=== PATIENT | female | born 1955 | race Caucasian/White ===

== ENCOUNTER 2019-12-09 20:15 | Inpatient (IN) | payer OTHER ==
[2019-12-09 21:16] LABS: Actual Bicarbonate (HCO3a) 50.9 mEq/L (22-28); Analyzer IN Cardio ER; Base Excess (BEa) 19.2 mEq/L (-2.0 to +3.0); Calcium, Ionized 1.18 mmol/L (1.12-1.30); Carboxyhemoglobin (COHb) 0.1 gm% (0.0-3.0); Hemoglobin (Hb) 11.9 g/dL (12.0-16.0); O2 Tension (PaO2) 81.4 mmHg (> 80.0); Potassium - ABG Lab 4.33 mmol/L (3.70-5.30); pH, Arterial 7.28 (7.35-7.45)
[2019-12-09 21:47] LABS: CO2 Tension 112.1 mmHg (35.0-45.0)
[2019-12-09 21:48] LABS: ALV-art Gradient -21.885 (0-20); Puncture Site LBA
[2019-12-09 22:26] LABS: Actual Bicarbonate (HCO3a) 46.6 mEq/L (22-28); Analyzer IN Cardio ER; Base Excess (BEa) 17.1 mEq/L (-2.0 to +3.0); Calcium, Ionized 1.17 mmol/L (1.12-1.30); Carboxyhemoglobin (COHb) 0.2 gm% (0.0-3.0); Hemoglobin (Hb) 12.1 g/dL (12.0-16.0); O2 Tension (PaO2) 67.5 mmHg (> 80.0); Potassium - ABG Lab 4.33 mmol/L (3.70-5.30); pH, Arterial 7.35 (7.35-7.45)
[2019-12-09] MEDS ORDERED: Ipratropium Bromide 2.5 ml Neb NEB PRN (22:26)
[2019-12-09] MEDS ORDERED: Bacteriostatic Water 30 ML VIAL FS PRN (22:33)
--- NOTE | 2019-12-09 22:36 | PDOC.EVN ---
Event Note - Event Note Event Note: [id number] HP
[2019-12-10] MEDS: cefTRIAXone\\ROCEPHIN 1 GM in Sodium Chloride 0.9% 100 ML IVPB SCH ×2 (00:43→22:47)
[2019-12-10] MEDS: methylPREDNISolone Sod Succ 40 MG VIAL IVP SCH ×5 (00:44→22:48)
[2019-12-10 01:10] VITALS: BMI 30.9
[2019-12-10 01:43] LABS: Puncture Site R BRACHIAL]
--- NOTE | 2019-12-10 02:49 | HP ---
CHIEF COMPLAINT: Altered mental status. HISTORY OF PRESENT ILLNESS: Ms. Witt is a 64-year-old female with past medical history of COPD, presents to [facility] for altered mental status. The patient was somnolent and was given Narcan and placed on BiPAP. The patient arrived to the emergency room. The patient was not on BiPAP or CPAP. The patient was awake, alert, oriented x1. ABGs showed acute on chronic respiratory acidosis. The patient was placed back on BiPAP. Repeat ABGs showed a pH of 7.28, PaCO2 of 112, PaO2 of 81. The patient is becoming more awake and alert and able to answer simple questions. The patient is being admitted to the [facility] for further management. PAST MEDICAL HISTORY: COPD. PAST SURGICAL HISTORY: 1. Hysterectomy. 2. Tonsillectomy. 3. Cataract surgery. PAST PSYCHIATRIC HISTORY: Depression. SOCIAL HISTORY: Denies alcohol drinking, former smoker. FAMILY HISTORY: Reviewed and noncontributory. ALLERGIES: NO KNOWN ALLERGIES. HOME MEDICATIONS: Please see home medication reconciliation form for updated medications. REVIEW OF SYSTEMS: The patient is somnolent. History is unreliable, but review of 14 systems negative except what is mentioned in history of present illness. PHYSICAL EXAMINATION: GENERAL: The patient is awake, lethargic. VITAL SIGNS: Blood pressure is 172/85, pulse is 110, respiratory rate is 20, temperature 98.6, pulse oximetry is 98% on 2 L/minute nasal cannula. HEAD AND NECK: Normocephalic. NECK: Supple. CHEST: Decreased air entry bilaterally. HEART: S1, S2. Regular, tachycardic. ABDOMEN: Obese, soft. Bowel sounds present. NEUROLOGIC: Awake, alert, and oriented x1. PSYCHIATRIC: Unable to assess. EXTREMITIES: No clubbing, no cyanosis. LABORATORY DATA: ABGs; pH is 7.28, PaCO2 of 112, PO2 of 81. BNP is less than 10. Troponin less than 0.01. ASSESSMENT AND PLAN: 1. Acute on chronic hypercapnic respiratory failure. 2. Chronic obstructive pulmonary disease with exacerbation. 3. Obesity. 4. Acute encephalopathy, metabolic. PLAN: 1. Admit to [facility]. 2. Continue with BiPAP. 3. Monitor patient's respiratory and neurological/mental status. 4. Bronchodilators scheduled as needed. 5. IV steroids. 6. Consult Pulmonary for evaluation and further recommendations. 7. Reconcile home medications. 8. DVT prophylaxis as appropriate. 9. Expected length of stay, 2 midnights or more. Job ID: [id number]
--- NOTE | 2019-12-10 11:31 | PDOC.HOSPP ---
- Subjective Encounter Date: 12/10/19 Encounter Time: 11:26 Subjective: Ms. Witt was seen today in follow-up of COPD exacerbation. She says she is having some difficulty breathing. She appears a bit dyspneic as well. - Objective Vital Signs & Weight: Vital Signs (12 hours) Temp Pulse Resp Pulse Ox 12/10/19 11:22 115 H 21 H 95 12/10/19 07:39 97.4 F L 100 12/10/19 07:26 95 12/10/19 07:25 99 24 H 100 12/10/19 05:11 100 12/10/19 04:00 97.0 F L 12/10/19 01:38 110 H 98 12/10/19 01:36 112 H 23 H 99 12/09/19 23:56 97.4 F L Weight Weight 164 lb Most Recent Monitor Data Heart Rate from ECG 97 NIBP 124/73 NIBP BP-Mean 90 Respiration from ECG 24 SpO2 100 I&O: 12/09/19 12/10/19 12/11/19 06:59 06:59 06:59 Intake Total 340 Output Total 380 600 Balance -40 -600 Hospitalist ROS - Medication Medications: Active Medications Generic Name Dose Route Start Last Admin Trade Name Freq PRN Reason Stop Dose Admin Albuterol/Ipratropium 3 ml 12/10/19 15:00 12/10/19 11:22 Duoneb NEB 3 ml [id number] DARVIN Administration Ceftriaxone Sodium 1 gm/ 100 mls @ 200 mls/hr 12/09/19 22:30 12/10/19 00:43 Sodium Chloride IVPB 100 mls Q24HR DARVIN Administration Methylprednisolone Sodium Succinate 40 mg 12/09/19 23:59 12/10/19 05:57 Solu-Medrol IVP 40 mg Q6HR DARVIN Administration - Exam Heart: RRR, no murmur, no gallops, no rubs, normal peripheral pulses Respiratory: CTAB (with decreased air movement), no ronchi Gastrointestinal: soft, non-tender, non-distended, normal bowel sounds, no palpable masses, no hepatomegaly Extremities: no cyanosis, no clubbing, no edema Hosp A/P (1) Acute on chronic respiratory failure with hypoxemia Code(s): J96.21 - ACUTE AND CHRONIC RESPIRATORY FAILURE WITH HYPOXIA Status: Acute (2) COPD exacerbation Code(s): J44.1 - CHRONIC OBSTRUCTIVE PULMONARY DISEASE W (ACUTE) EXACERBATION Status: Acute - Plan * Acute on chronic respiratory failure- continue the current management * Continue Steroids, IV antibiotics, Duonebs, and and supplemental oxygen * Echo is pending
--- NOTE | 2019-12-10 12:21 | CON ---
DATE OF CONSULTATION: HISTORY OF PRESENT ILLNESS: This is a 64-year-old female from [place], pack-a-day smoker, quit smoking six years ago. She has known history of COPD. Yesterday, she got worse with confusion and mental status change. She was placed on a BiPAP and transferred to the hospital over here. She had marked respiratory acidosis. She says on a most day, she is quite functional. She is able to walk maybe 50 feet without getting markedly short of breath. PAST MEDICAL HISTORY: Depression and COPD. PAST SURGICAL HISTORY: Previous surgeries; hysterectomy, tonsillectomy, and cataracts. SOCIAL HISTORY: No substance abuse. No alcohol. Former smoker. HOME MEDICATIONS: Includes: 1. Zoloft 50. 2. Nebulizer four times a day, low-flow O2. ALLERGIES: NONE. REVIEW OF SYSTEMS: Ten-point negative. PHYSICAL EXAMINATION: GENERAL: She is still encephalopathic. VITAL SIGNS: Temperature 97, blood pressure 124/70, respiratory rate 18. CHEST: Decreased breath sounds with minimal wheezing. CARDIAC: Normal S1 and S2. No gallops. ABDOMEN: No masses. LABORATORY DATA: White count 9,000, H and H are unremarkable, and platelet count is normal. A pO2 is 67, pCO2 is 86, and pH is 7.35. Lytes are normal. Bicarb is 39. Chest x-ray shows otherwise bronchitis, marked respiratory acidosis, depression, and obesity. I have added DuoNeb. Added PT. Continue steroids. Echo is being ordered. Consultation note, 70 minutes, 50% direct patient care. Job ID: [id number]
[2019-12-10] MEDS: Mometasone/Formoterol 120 PUFF INHALER INH SCH (19:07)
[2019-12-10] MEDS ORDERED: Acetaminophen 325 MG TAB PO PRN (22:02)
[2019-12-10] MEDS ORDERED: Acetaminophen 650 MG Suppository PR PRN (22:02)
[2019-12-11] MEDS: methylPREDNISolone Sod Succ 40 MG VIAL IVP SCH ×2 (06:11→10:53)
[2019-12-11] MEDS: Mometasone/Formoterol 120 PUFF INHALER INH SCH ×2 (07:10→17:34)
[2019-12-11] MEDS: Docusate 100 MG CAP PO SCH (08:47)
[2019-12-11 08:49] LABS: #Lymphocytes 1.2 thou/uL (1.20-3.40); #Monocytes 0.4 thou/uL (0.11-0.59); #Neutrophils 12.3 thou/uL (1.40-6.50); %Basophils 0.1 % (0.0-1.0); %Eosinophils 0.3 % (0.0-10.0); %Lymphocytes 8.3 % (21.0-51.0); %Monocytes 2.7 % (0.0-10.0); %Neutrophils 88.7 % (42.0-75.0); Hemoglobin 12.5 g/dL (12.0-16.0); Mean Corpuscular Hemoglobin 29.5 pg (27.0-31.0); Mean Corpuscular Volume 95.1 fL (78.0-98.0); Mean Platelet Volume 8.3 fL (7.4-10.4); Platelet Count 300 thou/uL (130-400); RBC Distribution Width 11.8 % (11.5-14.5); Red Blood Cell (RBC) Count 4.23 mill/uL (4.20-5.40); White Blood Cell (WBC) Count 13.9 thou/uL (4.8-10.8)
[2019-12-11 08:52] LABS: BUN (Urea Nitrogen) 19 mg/dL (9.8-20.1); Calc. Creatinine Clearance 96 mL/min (70-130); Calcium 10.2 mg/dL (7.8-10.44); Estimated GFR-MDRD 83; Glucose 130 mg/dL (80-115)
[2019-12-11 09:01] LABS: Anion Gap 17 mmol/L (10-20); Carbon Dioxide 34 mmol/L (23-31); Chloride 94 mmol/L (98-107); Sodium 141 mmol/L (136-145)
[2019-12-11] MEDS ORDERED: Simethicone Chewable 80 MG TAB PO PRN (09:46)
--- NOTE | 2019-12-11 09:53 | PDOC.HOSPP ---
- Subjective Encounter Date: 12/11/19 Encounter Time: 09:51 Subjective: Ms. Witt was seen today in follow-up of respiratory failure due to COPD. She does not have any new complaints. She has been noted to have decreased oxygen requirements. - Objective Vital Signs & Weight: Vital Signs (12 hours) Temp Pulse Resp Pulse Ox 12/11/19 07:19 96.8 F L 12/11/19 07:11 100 12/11/19 07:08 94 18 98 12/11/19 03:36 97.2 F L 12/11/19 03:01 98 12/11/19 02:56 98 26 H 98 12/10/19 23:43 98.6 F Weight Weight 164 lb Most Recent Monitor Data Heart Rate from ECG 86 NIBP 129/67 NIBP BP-Mean 87 Respiration from ECG 22 SpO2 99 I&O: 12/10/19 12/11/19 12/12/19 06:59 06:59 06:59 Intake Total 340 750 Output Total 380 1400 Balance -40 -650 Result Diagrams: 12/11/19 08:11 12/11/19 08:11 Hospitalist ROS - Medication Medications: Active Medications Generic Name Dose Route Start Last Admin Trade Name Freq PRN Reason Stop Dose Admin Acetaminophen 650 mg 12/10/19 22:02 12/10/19 22:48 Tylenol PO 650 mg Q4H PRN Administration Fever > 101 Albuterol/Ipratropium 3 ml 12/10/19 15:00 12/11/19 07:08 Duoneb NEB 3 ml [id number] DARVIN Administration Docusate Sodium 100 mg 12/11/19 09:00 12/11/19 08:47 Colace PO 100 mg DAILY DARVIN Administration Ceftriaxone Sodium 1 gm/ 100 mls @ 200 mls/hr 12/09/19 22:30 12/10/19 22:47 Sodium Chloride IVPB 100 mls Q24HR DARVIN Administration Methylprednisolone Sodium Succinate 40 mg 12/09/19 23:59 12/11/19 06:11 Solu-Medrol IVP 40 mg Q6HR DARVIN Administration Mometasone Furoate/Formoterol Fumar 2 puff 12/10/19 18:30 12/11/19 07:10 Dulera 200 Mcg/5 Mcg Inhaler INH 2 puff BID-RT DARVIN Administration Sertraline HCl 50 mg 12/11/19 09:00 12/11/19 08:47 Zoloft PO 50 mg DAILY DARVIN Administration - Exam Eye: PERRL Heart: RRR, no murmur, no gallops, no rubs, normal peripheral pulses Respiratory: CTAB (+ improved air movement), no wheezes, no rales, no ronchi Gastrointestinal: soft, non-tender, non-distended, normal bowel sounds, no palpable masses, no hepatomegaly Extremities: no cyanosis, no clubbing, no edema Hosp A/P (1) Acute on chronic respiratory failure with hypoxemia Code(s): J96.21 - ACUTE AND CHRONIC RESPIRATORY FAILURE WITH HYPOXIA Status: Acute (2) COPD exacerbation Code(s): J44.1 - CHRONIC OBSTRUCTIVE PULMONARY DISEASE W (ACUTE) EXACERBATION Status: Acute - Plan * Acute on chronic respiratory failure-slowly improving * Continue Duonebs, Steroids, and antibiotics * Echo results noted * She is stable to move out of the [facility] if ok by [facility]
[2019-12-11] MEDS ORDERED: Doxycycline 100 MG CAP PO SCH (11:45)
--- NOTE | 2019-12-11 12:28 | PRG ---
DATE OF SERVICE: 12/11/2019 SUBJECTIVE: This morning, she is better. Echo done was normal. She is less short of breath, less cough. OBJECTIVE: VITAL SIGNS: Saturations are 97% on room air, blood pressure 157/101, respiratory rate 28, and temperature 99.6. CHEST: Decreased breath sounds. No wheezing. CARDIAC: Normal S1 and S2. No gallops. ABDOMEN: No masses. LABORATORY DATA: Lytes are normal. White count . ASSESSMENT: Chronic obstructive pulmonary disease exacerbation and bronchitis. PLAN: De-escalate medication. She needs pulmonary function tests prior to discharge baseline. She can probably be transferred out of the MICU. Job ID: [id number]
[2019-12-11] MEDS: Doxycycline 100 MG CAP PO SCH (20:31)
[2019-12-11] MEDS ORDERED: ALPRAZolam 0.5 MG TAB PO SCH (22:15)
[2019-12-11 23:06] LABS: Lactic Acid 1.5 mmol/L (0.5-2.2)
[2019-12-11 23:10] LABS: BUN (Urea Nitrogen) 21 mg/dL (9.8-20.1); Calc. Creatinine Clearance 91 mL/min (70-130); Calcium 10.2 mg/dL (7.8-10.44); Estimated GFR-MDRD 78; Glucose 86 mg/dL (80-115); Magnesium 2.3 mg/dL (1.6-2.6)
[2019-12-11 23:20] LABS: Anion Gap 16 mmol/L (10-20); Carbon Dioxide 38 mmol/L (23-31); Chloride 94 mmol/L (98-107); Potassium 4.8 mmol/L (3.5-5.1); Sodium 143 mmol/L (136-145)
[2019-12-12] MEDS: Mometasone/Formoterol 120 PUFF INHALER INH SCH ×2 (08:31→17:23)
[2019-12-12] MEDS: predniSONE 20 MG TAB PO SCH (08:40)
[2019-12-12] MEDS: Docusate 100 MG CAP PO SCH (08:41)
[2019-12-12] MEDS: Doxycycline 100 MG CAP PO SCH ×2 (08:41→21:22)
--- NOTE | 2019-12-12 09:03 | PRG ---
DATE OF SERVICE: 12/12/2019 SUBJECTIVE: This morning, she is awake, alert, responsive, says she is less short of breath, has less cough. I switched her to some oral medication. She is clearly very anxious and depressed. She has a negative affect. PHYSICAL EXAMINATION: VITAL SIGNS: Temperature 96, pulse 88, 2 L, blood pressure 123/71. CHEST: Decreased breath sounds. No wheezing. CARDIAC: Normal S1, S2. No gallops. ABDOMEN: No masses. LABORATORY DATA: Labs unremarkable. ASSESSMENT: Chronic obstructive pulmonary disease, respiratory failure, depression. PLAN: 1. Increase the Zoloft to 75. 2. Needs to be transferred out of the MICU. 3. Otherwise, continue PT supportive care. Job ID: [id number]
--- NOTE | 2019-12-12 11:28 | PDOC.HOSPP ---
- Subjective Encounter Date: 12/12/19 Encounter Time: 11:24 Subjective: Ms Witt was seen today in follow-up of COPD exacerbation . She says she is breathing better. She is less short of breath. - Objective Vital Signs & Weight: Vital Signs (12 hours) Temp Pulse Resp BP Pulse Ox 12/12/19 11:17 96.8 F L 12/12/19 10:57 98 18 99 12/12/19 08:31 88 20 100 12/12/19 07:59 98 12/12/19 07:13 96.4 F L 12/12/19 07:00 100 12/12/19 05:00 143/78 H 12/12/19 04:00 97.4 F L 12/12/19 03:00 110/64 12/12/19 02:00 118/74 12/12/19 01:00 136/64 12/12/19 00:11 118/66 12/11/19 23:38 97.3 F L Weight Weight 164 lb Most Recent Monitor Data Heart Rate from ECG 99 NIBP 114/57 NIBP BP-Mean 76 Respiration from ECG 21 SpO2 99 I&O: 12/11/19 12/12/19 12/13/19 06:59 06:59 06:59 Intake Total 750 120 Output Total 1400 400 Balance -650 -280 Result Diagrams: 12/11/19 08:11 12/11/19 22:35 Hospitalist ROS - Medication Medications: Active Medications Generic Name Dose Route Start Last Admin Trade Name Freq PRN Reason Stop Dose Admin Acetaminophen 650 mg 12/10/19 22:02 12/10/19 22:48 Tylenol PO 650 mg Q4H PRN Administration Fever > 101 Albuterol/Ipratropium 3 ml 12/10/19 15:00 12/12/19 10:57 Duoneb NEB 3 ml [id number] DARVIN Administration Docusate Sodium 100 mg 12/11/19 09:00 12/12/19 08:41 Colace PO 100 mg DAILY DARVIN Administration Doxycycline Hyclate 100 mg 12/11/19 21:00 12/12/19 08:41 Vibramycin PO 12/18/19 09:01 100 mg BID DARVIN Administration Mometasone Furoate/Formoterol Fumar 2 puff 12/10/19 18:30 12/12/19 08:31 Dulera 200 Mcg/5 Mcg Inhaler INH 2 puff BID-RT DARVIN Administration Prednisone 40 mg 12/12/19 08:00 12/12/19 08:40 Prednisone PO 40 mg QAM-WM DARVIN Administration Sertraline HCl 75 mg 12/12/19 09:00 12/12/19 08:51 Zoloft PO 75 mg DAILY DARVIN Administration Simethicone 80 mg 12/11/19 09:46 12/11/19 10:52 Mylicon Chewable PO 80 mg PCHS PRN Administration Gas Pain - Exam Eye: PERRL, anicteric sclera Heart: RRR, no murmur, no gallops, no rubs, normal peripheral pulses Respiratory: CTAB, no wheezes, no rales Gastrointestinal: soft, non-tender, non-distended, normal bowel sounds, no palpable masses, no hepatomegaly Extremities: no cyanosis, no clubbing, no edema Hosp A/P (1) Acute on chronic respiratory failure with hypoxemia Code(s): J96.21 - ACUTE AND CHRONIC RESPIRATORY FAILURE WITH HYPOXIA Status: Acute (2) COPD exacerbation Code(s): J44.1 - CHRONIC OBSTRUCTIVE PULMONARY DISEASE W (ACUTE) EXACERBATION Status: Acute - Plan * Acute on chronic respiratory failure-slowly improving * Continue Duonebs, Steroids, and antibiotics * Echo results noted * Stable for transition out of the [facility]
[2019-12-12] MEDS: Lorazepam 0.5 MG TAB PO PRN (21:22)
[2019-12-13] MEDS: Mometasone/Formoterol 120 PUFF INHALER INH SCH ×2 (07:48→19:15)
[2019-12-13] MEDS: Docusate 100 MG CAP PO SCH (07:53)
[2019-12-13] MEDS: Doxycycline 100 MG CAP PO SCH ×2 (07:53→20:55)
[2019-12-13] MEDS: predniSONE 20 MG TAB PO SCH (07:53)
--- NOTE | 2019-12-13 09:27 | PRG ---
DATE OF SERVICE: 12/13/2019 SUBJECTIVE: This morning, she is better. OBJECTIVE: VITAL SIGNS: Temperature 97, saturations are 100% on 3 L, pulse 100, blood pressure 130/81. CHEST: Decreased breath sounds. No wheezing. CARDIAC: Normal S1 and S2. No gallops. ABDOMEN: No masses. IMPRESSION: End-stage chronic obstructive pulmonary disease, tobacco abuse. PLAN: She needs to be left on low-flow O2 no more than 1 L a minute. Otherwise, continue neb treatments, PT, steroids. Eventually to home. Job ID: [id number]
--- NOTE | 2019-12-13 11:46 | PDOC.HOSPP ---
- Subjective Encounter Date: 12/13/19 Encounter Time: 11:44 Subjective: Ms. Witt was seen today in follow-up of COPD exacerbation. She does not have any new complaints. She does not feel ready to go home. - Objective Vital Signs & Weight: Vital Signs (12 hours) Temp Pulse Resp Pulse Ox 12/13/19 10:39 107 H 20 98 12/13/19 08:06 97.4 F L 12/13/19 08:00 100 12/13/19 07:46 100 23 H 100 12/13/19 04:00 97.5 F L Weight Weight 164 lb Most Recent Monitor Data Heart Rate from ECG 100 NIBP 132/81 NIBP BP-Mean 98 Respiration from ECG 22 SpO2 99 I&O: 12/12/19 12/13/19 12/14/19 06:59 06:59 06:59 Intake Total 120 800 Output Total 400 750 Balance -280 50 Result Diagrams: 12/11/19 08:11 12/11/19 22:35 Hospitalist ROS - Medication Medications: Active Medications Generic Name Dose Route Start Last Admin Trade Name Freq PRN Reason Stop Dose Admin Acetaminophen 650 mg 12/10/19 22:02 12/10/19 22:48 Tylenol PO 650 mg Q4H PRN Administration Fever > 101 Albuterol/Ipratropium 3 ml 12/10/19 15:00 12/13/19 10:39 Duoneb NEB 3 ml [id number] DARVIN Administration Docusate Sodium 100 mg 12/11/19 09:00 12/13/19 07:53 Colace PO 100 mg DAILY DARVIN Administration Doxycycline Hyclate 100 mg 12/11/19 21:00 12/13/19 07:53 Vibramycin PO 12/18/19 09:01 100 mg BID DARVIN Administration Lorazepam 0.5 mg 12/12/19 18:51 12/12/19 21:22 Ativan PO 0.5 mg BID PRN Administration Anxiety Mometasone Furoate/Formoterol Fumar 2 puff 12/10/19 18:30 12/13/19 07:48 Dulera 200 Mcg/5 Mcg Inhaler INH 2 puff BID-RT DARVIN Administration Prednisone 40 mg 12/12/19 08:00 12/13/19 07:53 Prednisone PO 40 mg QAM-WM DARVIN Administration Sertraline HCl 75 mg 12/12/19 09:00 12/13/19 07:53 Zoloft PO 75 mg DAILY DARVIN Administration Simethicone 80 mg 12/11/19 09:46 12/11/19 10:52 Mylicon Chewable PO 80 mg PCHS PRN Administration Gas Pain - Exam Eye: PERRL Heart: RRR, no murmur, no gallops, no rubs, normal peripheral pulses Respiratory: CTAB (+ minimal wheeze, no rhonchi or rales) Gastrointestinal: soft, non-tender, non-distended, normal bowel sounds, no palpable masses, no hepatomegaly Extremities: no cyanosis, no edema Hosp A/P (1) Acute on chronic respiratory failure with hypoxemia Code(s): J96.21 - ACUTE AND CHRONIC RESPIRATORY FAILURE WITH HYPOXIA Status: Acute (2) COPD exacerbation Code(s): J44.1 - CHRONIC OBSTRUCTIVE PULMONARY DISEASE W (ACUTE) EXACERBATION Status: Acute - Plan * Acute on chronic respiratory failure-slowly improving * Continue Duonebs, Steroids, and antibiotics * Echo results noted * Will continue as per PCCM, Ambulate * Hopefully home soon
[2019-12-13] MEDS: Lorazepam 0.5 MG TAB PO PRN (20:55)
[2019-12-14] MEDS: Mometasone/Formoterol 120 PUFF INHALER INH SCH ×2 (07:52→18:57)
[2019-12-14] MEDS: predniSONE 20 MG TAB PO SCH (08:03)
[2019-12-14] MEDS: Docusate 100 MG CAP PO SCH (08:03)
[2019-12-14] MEDS: Doxycycline 100 MG CAP PO SCH ×2 (08:03→20:42)
--- NOTE | 2019-12-14 08:52 | PRG ---
DATE OF SERVICE: 12/14/2019 SUBJECTIVE: This morning, she is awake, alert, and responsive. OBJECTIVE: VITAL SIGNS: Temperature is 98.7, pulse 113, respirations 16, saturations are 98% on 1 L, and blood pressure 130/70. CHEST: Decreased breath sounds. No wheezing. CARDIAC: Normal S1 and S2. No gallops. ABDOMEN: No masses. ASSESSMENT: 1. End-stage chronic obstructive pulmonary disease. 2. Marked respiratory acidosis. 3. Diastolic dysfunction. PLAN: Outpatient sleep study. Continue supportive care, PT, minimize sedation. Tapering dose of steroids. Two weeks of antidepressant medication. Baseline blood gases if pCO2 is elevated. May consider nocturnal home ventilation. Job ID: [id number]
[2019-12-14 08:54] LABS: Actual Bicarbonate (HCO3a) 40.7 mEq/L (22-28); Base Excess (BEa) 13.7 mEq/L (-2.0 to +3.0); Calcium, Ionized 1.13 mmol/L (1.12-1.30); Carboxyhemoglobin (COHb) 1.1 gm% (0.0-3.0); O2 Tension (PaO2) 71.9 mmHg (> 80.0); Potassium - ABG Lab 2.98 mmol/L (3.70-5.30); pH, Arterial 7.43 (7.35-7.45)
--- NOTE | 2019-12-14 10:04 | PDOC.HOSPP ---
- Subjective Encounter Date: 12/14/19 Encounter Time: 10:02 Subjective: Ms. Witt was seen tday in follow-up of respiratory failure. She does not have any new complaints. - Objective Vital Signs & Weight: Vital Signs (12 hours) Temp Pulse Resp Pulse Ox 12/14/19 07:53 113 H 16 12/14/19 07:19 98 12/14/19 07:13 97.0 F L 12/14/19 04:35 97.2 F L 12/14/19 02:34 102 H 20 97 12/14/19 00:50 91 16 98 12/14/19 00:22 98.0 F Weight Weight 164 lb Most Recent Monitor Data Heart Rate from ECG 110 NIBP 141/75 NIBP BP-Mean 97 Respiration from ECG 20 SpO2 99 I&O: 12/13/19 12/14/19 12/15/19 06:59 06:59 06:59 Intake Total 800 240 Output Total 750 400 Balance 50 -160 Result Diagrams: 12/11/19 08:11 12/11/19 22:35 Hospitalist ROS - Medication Medications: Active Medications Generic Name Dose Route Start Last Admin Trade Name Freq PRN Reason Stop Dose Admin Acetaminophen 650 mg 12/10/19 22:02 12/10/19 22:48 Tylenol PO 650 mg Q4H PRN Administration Fever > 101 Albuterol/Ipratropium 3 ml 12/10/19 15:00 12/14/19 07:53 Duoneb NEB 3 ml [id number] DARVIN Administration Albuterol/Ipratropium 3 ml 12/13/19 05:45 12/14/19 02:34 Duoneb NEB 3 ml Q4H PRN Administration SOB &/or Wheezing Docusate Sodium 100 mg 12/11/19 09:00 12/14/19 08:03 Colace PO 100 mg DAILY DARVIN Administration Doxycycline Hyclate 100 mg 12/11/19 21:00 12/14/19 08:03 Vibramycin PO 12/18/19 09:01 100 mg BID DARVIN Administration Lorazepam 0.5 mg 12/12/19 18:51 12/13/19 20:55 Ativan PO 0.5 mg BID PRN Administration Anxiety Mometasone Furoate/Formoterol Fumar 2 puff 12/10/19 18:30 12/14/19 07:52 Dulera 200 Mcg/5 Mcg Inhaler INH 2 puff BID-RT DARVIN Administration Prednisone 40 mg 12/12/19 08:00 12/14/19 08:03 Prednisone PO 40 mg QAM-WM DARVIN Administration Sertraline HCl 75 mg 12/12/19 09:00 12/14/19 08:03 Zoloft PO 75 mg DAILY DARVIN Administration Simethicone 80 mg 12/11/19 09:46 12/11/19 10:52 Mylicon Chewable PO 80 mg PCHS PRN Administration Gas Pain - Exam Eye: PERRL Neck: supple Heart: RRR, no murmur, no gallops, no rubs, normal peripheral pulses Respiratory: CTAB, no wheezes, no rales, no ronchi, normal chest expansion Gastrointestinal: soft, non-tender, non-distended, normal bowel sounds Extremities: no cyanosis, no edema Hosp A/P (1) Acute on chronic respiratory failure with hypoxemia Code(s): J96.21 - ACUTE AND CHRONIC RESPIRATORY FAILURE WITH HYPOXIA Status: Acute (2) COPD exacerbation Code(s): J44.1 - CHRONIC OBSTRUCTIVE PULMONARY DISEASE W (ACUTE) EXACERBATION Status: Acute (3) Depression Code(s): F32.9 - MAJOR DEPRESSIVE DISORDER, SINGLE EPISODE, UNSPECIFIED Status : Acute (4) Sleep apnea Code(s): G47.30 - SLEEP APNEA, UNSPECIFIED Status: Acute - Plan * Acute on chronic respiratory failure-slowly improving * Continue Duonebs, Steroids, and antibiotics * She has Probable ALEX- she will need outpatient sleep study * Home when cleared by [facility]
[2019-12-14 11:21] LABS: CO2 Tension 62.5 mmHg (35.0-45.0); Puncture Site L.R.
[2019-12-14 11:22] LABS: ALV-art Gradient 21.095 (0-20)
[2019-12-14 14:50] VITALS: BP 150/84
[2019-12-14] MEDS: Lorazepam 0.5 MG TAB PO PRN (20:42)
[2019-12-15] MEDS: Mometasone/Formoterol 120 PUFF INHALER INH SCH (06:22)
[2019-12-15] MEDS: Docusate 100 MG CAP PO SCH (08:16)
[2019-12-15] MEDS: Doxycycline 100 MG CAP PO SCH (08:16)
[2019-12-15] MEDS: predniSONE 20 MG TAB PO SCH (08:16)
[2019-12-15 08:34] LABS: BUN (Urea Nitrogen) 21 mg/dL (9.8-20.1); Calc. Creatinine Clearance 93 mL/min (70-130); Calcium 9.3 mg/dL (7.8-10.44); Estimated GFR-MDRD 80; Glucose 96 mg/dL (80-115)
[2019-12-15 08:39] LABS: #Basophils 0.2 thou/uL (0.0-0.2); #Eosinphils 0.4 thou/uL (0.0-0.7); #Monocytes 1.4 thou/uL (0.11-0.59); #Neutrophils 12.6 thou/uL (1.40-6.50); %Eosinophils 2.1 % (0.0-10.0); %Lymphocytes 21.6 % (21.0-51.0); %Monocytes 7.4 % (0.0-10.0); %Neutrophils 67.9 % (42.0-75.0); Hemoglobin 12.4 g/dL (12.0-16.0); Mean Corpuscular Hemoglobin 29.7 pg (27.0-31.0); Mean Corpuscular Volume 95.6 fL (78.0-98.0); Mean Platelet Volume 8.5 fL (7.4-10.4); Platelet Count 296 thou/uL (130-400); Red Blood Cell (RBC) Count 4.19 mill/uL (4.20-5.40); White Blood Cell (WBC) Count 18.6 thou/uL (4.8-10.8)
[2019-12-15 08:43] LABS: Anion Gap 14 mmol/L (10-20); Carbon Dioxide 38 mmol/L (23-31); Chloride 90 mmol/L (98-107); Sodium 139 mmol/L (136-145)
[2019-12-15] MEDS ORDERED: Potassium Chloride 20 MEQ TAB PO SCH ×2 (10:30→14:00)
--- NOTE | 2019-12-15 10:35 | PDOC.HOSPP ---
- Subjective Encounter Date: 12/15/19 Encounter Time: 10:34 Subjective: Ms. Witt was seen today in follow-up of COPD exacerbation. - Objective Vital Signs & Weight: Vital Signs (12 hours) Temp Pulse Resp Pulse Ox 12/15/19 07:45 98 12/15/19 07:18 97.4 F L 12/15/19 06:54 98 12/15/19 06:22 98 20 100 12/15/19 03:22 97.8 F 12/15/19 02:36 104 H 23 H 99 12/14/19 23:53 97.5 F L 12/14/19 23:52 97.5 F L Weight Weight 164 lb Most Recent Monitor Data Heart Rate from ECG 112 NIBP 135/81 NIBP BP-Mean 99 Respiration from ECG 20 SpO2 100 I&O: 12/14/19 12/15/19 12/16/19 06:59 06:59 06:59 Intake Total 240 240 Output Total 400 600 Balance -160 -360 Result Diagrams: 12/15/19 08:07 12/15/19 08:07 Hospitalist ROS - Medication Medications: Active Medications Generic Name Dose Route Start Last Admin Trade Name Freq PRN Reason Stop Dose Admin Acetaminophen 650 mg 12/10/19 22:02 12/10/19 22:48 Tylenol PO 650 mg Q4H PRN Administration Fever > 101 Albuterol/Ipratropium 3 ml 12/10/19 15:00 12/15/19 06:22 Duoneb NEB 3 ml [id number] DARVIN Administration Albuterol/Ipratropium 3 ml 12/13/19 05:45 12/14/19 02:34 Duoneb NEB 3 ml Q4H PRN Administration SOB &/or Wheezing Docusate Sodium 100 mg 12/11/19 09:00 12/15/19 08:16 Colace PO 100 mg DAILY DARVIN Administration Doxycycline Hyclate 100 mg 12/11/19 21:00 12/15/19 08:16 Vibramycin PO 12/18/19 09:01 100 mg BID DARVIN Administration Lorazepam 0.5 mg 12/12/19 18:51 12/14/19 20:42 Ativan PO 0.5 mg BID PRN Administration Anxiety Mometasone Furoate/Formoterol Fumar 2 puff 12/10/19 18:30 12/15/19 06:22 Dulera 200 Mcg/5 Mcg Inhaler INH 2 puff BID-RT DARVIN Administration Prednisone 40 mg 12/12/19 08:00 12/15/19 08:16 Prednisone PO 40 mg QAM-WM DARVIN Administration Sertraline HCl 100 mg 12/15/19 09:00 12/15/19 08:16 Zoloft PO 100 mg DAILY DARVIN Administration Simethicone 80 mg 12/11/19 09:46 12/11/19 10:52 Mylicon Chewable PO 80 mg PCHS PRN Administration Gas Pain - Exam Eye: PERRL Heart: RRR, no murmur, no gallops, no rubs, normal peripheral pulses Respiratory: CTAB, no wheezes, no rales, no ronchi, normal chest expansion, no tachypnea, normal percussion Gastrointestinal: soft, non-tender, non-distended, normal bowel sounds, no palpable masses, no hepatomegaly Extremities: no cyanosis, no clubbing, no edema Hosp A/P (1) Acute on chronic respiratory failure with hypoxemia Code(s): J96.21 - ACUTE AND CHRONIC RESPIRATORY FAILURE WITH HYPOXIA Status: Acute (2) COPD exacerbation Code(s): J44.1 - CHRONIC OBSTRUCTIVE PULMONARY DISEASE W (ACUTE) EXACERBATION Status: Acute (3) Depression Code(s): F32.9 - MAJOR DEPRESSIVE DISORDER, SINGLE EPISODE, UNSPECIFIED Status : Acute (4) Sleep apnea Code(s): G47.30 - SLEEP APNEA, UNSPECIFIED Status: Acute - Plan * Acute on chronic respiratory failure-improved * Continue Duonebs, Steroids, and antibiotics * She has Probable ALEX- she will need outpatient sleep study * stable for discharge home
[2019-12-15 11:27] VITALS: TEMP 97.2
--- NOTE | 2019-12-15 11:31 | PRG ---
DATE OF SERVICE: 12/15/2019 SUBJECTIVE: She is better. OBJECTIVE: VITAL SIGNS: Temperature 97, pulse saturations are 99% on 1 L, blood pressure CHEST: Decreased breath sounds. No wheezing. CARDIAC: Normal S1 and S2. No gallops. ABDOMEN: No masses. LABORATORY DATA: White count 8000, H and H 12 and 40, and platelet count normal. Baseline pCO2 of 62, pH 7.43, pO2 of 71 on 1 L. Lytes are normal. ASSESSMENT AND PLAN: 1. Acute on chronic respiratory failure. 2. Chronic obstructive pulmonary disease. 3. Tobacco abuse. Outpatient PFT, sleep study. Further recommendation as above. Home tapering dose of prednisone, neb treatments, refrain from smoking. Job ID: [id number]
--- NOTE | 2019-12-15 11:57 | PRG ---
DATE OF SERVICE: 12/15/2019 She is going to be discharged home today. She has severe COPD with resting elevated pCO2. I am ordering a home noninvasive ventilator for nighttime and as needed daytime use. Has traditional home BiPAP, will not be insufficient. The patient understands that and is willing to undergo the treatment. She is going to be seen back in the office later time and do a PFT. Job ID: [id number]
--- NOTE | 2019-12-16 02:58 | DIS ---
DATE OF ADMISSION: 12/10/2019 DATE OF DISCHARGE: 12/15/2019 DISCHARGE DISPOSITION: Home. DISCHARGE DIAGNOSES: 1. Pqwag-[id number]-geltvjm respiratory failure with hypoxemia and hypercapnia. 2. Chronic obstructive pulmonary disease exacerbation. 3. Probable sleep apnea. 4. Depression. 5. Generalized anxiety. DISCHARGE MEDICATIONS: Include: 1. Zoloft 100 mg daily. 2. Prednisone 40 mg daily for 4 days. 3. Lorazepam 0.5 mg p.o. twice daily. 4. Doxycycline 100 mg p.o. twice daily. 5. DuoNebs q.i.d. as needed. 6. The patient was also discharged with a nocturnal ventilator. CODE STATUS: Full code. ALLERGIES: NO KNOWN DRUG ALLERGIES. PROCEDURES DONE DURING THE ADMISSION: The patient had an echocardiogram in which the ejection fraction was estimated at 50% to 55%. There was some E to A flow reversal suggestive of diastolic dysfunction. HOSPITAL COURSE: Ms. Witt is a pleasant 64-year-old female, who presented to the emergency room due to severe somnolence. She was transferred from [place]. ABG revealed a severe, but [id number]-eq-tkcxmim respiratory acidosis with a pH of 7.28 and her pCO2 was 112. She was started on BiPAP and placed in the IMCU. Pulmonology was consulted and she slowly improved over the course of the next couple of days with BiPAP as needed. She was also treated with IV antibiotics, DuoNebs, steroids, and supplemental oxygen. Given the degree of hypercapnia, arrangements were made for her to have a nocturnal respirator. She would need to follow up, however, and have outpatient pulmonary function tests as well as an outpatient sleep study. She was counseled on this and she voiced understanding. She will be seeing Dr. Andino in 1 to 2 weeks. Her dose of Zoloft was also increased due to depressive symptoms. She did not have any suicidal or homicidal ideation, however. Once these arrangements were made, the patient was subsequently discharged home on 12/15/2019. Job ID: [id number]
--- NOTE | 2019-12-17 16:38 | EKG ---
Test Reason : Blood Pressure : / mmHG Vent. Rate : 101 BPM Atrial Rate : 101 BPM P-R Int : 158 ms QRS Dur : 068 ms QT Int : 310 ms P-R-T Axes : 024 013 029 degrees QTc Int : 401 ms Sinus tachycardia Anterior infarct , age undetermined Abnormal ECG Confirmed by REBECCA HENRY ([id number]), film editor supervisor DEREK ROGERS ([id number]) on 12/17/2019 4:37:39 PM Referred By: Confirmed By:REBECCA HENRY
== END 2019-12-15 14:30 | disposition home or self-care (01) | DRG 189 ==
LOC: ERS 20:15 → IMCU/EMU 12-10 00:02
PROVIDERS: ADMIT Internal Medicine; ATTEND Internal Medicine
PROC: 5A09457 Assistance with Respiratory Ventilation, 24-96 Consecutive Hours, Continuous Positive Airway Pressure (ICD-10-PCS; principal; 2019-12-10)
DX: J96.21 Acute and chronic respiratory failure with hypoxia (principal); G93.41 Metabolic encephalopathy; J44.1 Chronic obstructive pulmonary disease with (acute) exacerbation; J96.22 Acute and chronic respiratory failure with hypercapnia; E66.9 Obesity, unspecified; G47.33 Obstructive sleep apnea (adult) (pediatric); F32.9 Major depressive disorder, single episode, unspecified; F41.1 Generalized anxiety disorder; Z68.31 Body mass index [BMI] 31.0-31.9, adult; Z87.891 Personal history of nicotine dependence; Z79.51 Long term (current) use of inhaled steroids; Z79.899 Other long term (current) drug therapy; Z90.710 Acquired absence of both cervix and uterus
CPT/HCPCS: 36415; 80048; 82805; 83605; 83735; 83880; 84443; 84484; 85025; 93005; 93010; 93306; 94640; 94660; 94664; 96365; 96366; J0696; J1956; J2920; J3490; J7512; J7620

== ENCOUNTER 2023-12-27 19:13 | Inpatient (IN) | payer MEDICARE, MEDICAID ==
[2023-12-27] MEDS ORDERED: methylPREDNISolone Sod Succ/PF 125 MG/2 ML VIAL ONE (19:40)
[2023-12-27] MEDS ORDERED: Ipratropium/Albuterol 3 ML NEB ONE (19:53)
[2023-12-27 20:05] LABS: #Eosinphils 0.3 thou/uL (0.0-0.7); #Monocytes 0.8 thou/uL (0.11-0.59); #Neutrophils 10.2 thou/uL (1.40-6.50); %Basophils 0.2 % (0.0-1.0); %Eosinophils 2.3 % (0.0-10.0); %Lymphocytes 11.3 % (21.0-51.0); %Monocytes 6.1 % (0.0-10.0); %Neutrophils 79.8 % (42.0-75.0); Hemoglobin 14.1 g/dL (12.0-16.0); Mean Corpuscular HGB CONC 30.7 g/dL (32.0-36.0); Mean Corpuscular Hemoglobin 30.5 pg (27.0-31.0); Mean Corpuscular Volume 99.6 fl (78.0-98.0); Platelet Count 219 10x3/uL (130-400); RBC Distribution Width 12.6 % (11.5-14.5); Red Blood Cell (RBC) Count 4.62 mill/uL (4.20-5.40); White Blood Cell (WBC) Count 12.8 10x3/uL (4.8-10.8)
[2023-12-27 20:13] LABS: Actual Bicarbonate (HCO3v) 32.6 mEq/L (22-28); Analyzer IN Cardio ER; Base Excess 4.7 mEq/L (-2.0 to +3.0); Calcium, Ionized (venous) 1.06 mmol/L (1.16-1.32); Chloride (VBG) 95 mmol/L (98-106); Hematocrit-VBG 45 % (36.0-47.0); Hemoglobin (Hb) 15.2 g/dL (11.7-16.1); Sodium 140 mmol/L (133-146); pH (venous) 7.335 (7.32-7.43)
[2023-12-27 20:25] LABS: ALT (SGPT) 11 U/L (8-55); AST (SGOT) 17 U/L (5-34); Albumin 4.2 g/dL (3.4-4.8); Alkaline Phosphatase 154 U/L (40-110); Anion Gap 12 mmol/L (10-20); BUN (Urea Nitrogen) 13 mg/dL (9.8-20.1); Bilirubin, Total 0.4 mg/dL (0.2-1.2); Calc. Creatinine Clearance 0 mL/min (70-130); Calcium 9.5 mg/dL (7.8-10.44); Carbon Dioxide 33 mmol/L (23-31); Chloride 97 mmol/L (98-107); Estimated GFR 71; Globulin 3.6 g/dL (2.4-3.5); Glucose 107 mg/dL (80-115); Magnesium 2.3 mg/dL (1.6-2.6); Potassium 3.9 mmol/L (3.5-5.1); Protein, Total 7.8 g/dL (5.8-8.1); Sodium 138 mmol/L (136-145)
[2023-12-27] MEDS ORDERED: LevoFLOXacin 750 mg/D5W 150 ml Premix Bag ONE (20:30)
[2023-12-27 20:44] LABS: Influenza A by NAA Not Detected (NotDetected); Influenza B by NAA Not Detected (NotDetected); SARS-CoV-2 NAA Rapid Test Not Detected (NotDetected)
[2023-12-27] MEDS ORDERED: Albuterol 2.5 MG (0.5 mL) NEB ONE (22:50)
[2023-12-27] MEDS ORDERED: Albuterol 2.5 MG (3 mL) NEB ONE (22:51)
[2023-12-27] MEDS ORDERED: Acetaminophen 325 MG TAB PO PRN (23:26)
[2023-12-27] MEDS ORDERED: Ondansetron ODT 4 MG TAB PO PRN (23:26)
[2023-12-27] MEDS ORDERED: Ondansetron PF 4 MG/2 ML Vial IVP PRN (23:26)
[2023-12-27] MEDS ORDERED: Acetaminophen 650 MG Suppository PR PRN (23:26)
[2023-12-27] MEDS ORDERED: Ipratropium/Albuterol 3 ML NEB NEB PRN (23:37)
[2023-12-27] MEDS ORDERED: Magnesium Sulfate 2 GM in Sodium Chloride 0.9% 250 ML 250 ML IVPB SCH (23:45)
[2023-12-27] MEDS ORDERED: methylPREDNISolone Sod Succ 40 MG VIAL IVP SCH (23:59)
[2023-12-28] MEDS ORDERED: Benzonatate 100 MG CAP PO PRN (00:34)
[2023-12-28] MEDS ORDERED: GUAIFENESIN SF SOLN 200 MG/10 ML UDCUP PO PRN (00:35)
[2023-12-28] MEDS ORDERED: Sodium Chloride 0.65% Nasal 44 ML BOT EA NARE PRN (00:35)
[2023-12-28] MEDS ORDERED: Loratadine 10 MG TAB PO PRN (00:35)
[2023-12-28] MEDS: Magnesium 2 GM/50 ML(in water) 2 GM in Premix 1 BAG IVPB SCH (01:24)
[2023-12-28] MEDS: Azithromycin 500 MG in Sodium Chloride 0.9% 250 ML 250 ML IVPB SCH (01:25)
[2023-12-28] MEDS: cefTRIAXone\\ROCEPHIN 1 GM in Sodium Chloride 0.9% 100 ML IVPB SCH (01:26)
[2023-12-28] MEDS: guaiFENesin/DM ER PO SCH ×2 (01:26→08:39)
[2023-12-28 03:55] VITALS: BMI 35.6
[2023-12-28 05:34] LABS: #Monocytes 0.2 thou/uL (0.11-0.59); #Neutrophils 13.1 thou/uL (1.40-6.50); %Basophils 0.1 % (0.0-1.0); %Lymphocytes 2.5 % (21.0-51.0); %Monocytes 1.7 % (0.0-10.0); Hematocrit 43.4 % (36.0-47.0); Mean Corpuscular Volume 100.2 fl (78.0-98.0); Mean Platelet Volume 10.4 fL (7.4-10.4); Platelet Count 225 10x3/uL (130-400); RBC Distribution Width 12.7 % (11.5-14.5); Red Blood Cell (RBC) Count 4.33 mill/uL (4.20-5.40); White Blood Cell (WBC) Count 13.8 10x3/uL (4.8-10.8)
[2023-12-28 05:51] LABS: Anion Gap 15 mmol/L (10-20); BUN (Urea Nitrogen) 11 mg/dL (9.8-20.1); Calc. Creatinine Clearance 88 mL/min (70-130); Carbon Dioxide 30 mmol/L (23-31); Chloride 98 mmol/L (98-107); Estimated GFR 76; Glucose 138 mg/dL (80-115); Potassium 4.2 mmol/L (3.5-5.1); Sodium 139 mmol/L (136-145)
[2023-12-28] MEDS: methylPREDNISolone Sod Succ 40 MG VIAL IVP SCH (06:01)
[2023-12-28 06:21] LABS: Actual Bicarbonate (HCO3v) 31.8 mEq/L (22-28); Base Excess 1.8 mEq/L (-2.0 to +3.0); Calcium, Ionized (venous) 1.14 mmol/L (1.16-1.32); Chloride (VBG) 98 mmol/L (98-106); Hematocrit-VBG 41 % (36.0-47.0); Hemoglobin (Hb) 13.9 g/dL (11.7-16.1); Potassium (VBG) 4.47 mmol/L (3.70-5.30); Sodium 142 mmol/L (133-146); pH (venous) 7.228 (7.32-7.43)
[2023-12-28] MEDS: Ipratropium/Albuterol 3 ML NEB NEB SCH (07:37)
[2023-12-28] MEDS: Famotidine 20 MG TAB PO SCH (08:39)
[2023-12-28] MEDS: Heparin 5,000 UNITS/ML VIAL SC SCH (08:41)
[2023-12-28] MEDS: Polyethylene Glycol 3350 17 GM Packet PO SCH (08:44)
[2023-12-28] MEDS: Sertraline 100 MG TAB PO SCH (08:47)
[2023-12-29 08:41] VITALS: BP 138/78; TEMP 97.9
[2023-12-29 09:35] LABS: #Monocytes 0.4 thou/uL (0.11-0.59); #Neutrophils 16.1 thou/uL (1.40-6.50); %Basophils 0.1 % (0.0-1.0); %Lymphocytes 2.5 % (21.0-51.0); %Monocytes 2.4 % (0.0-10.0); %Neutrophils 94.2 % (42.0-75.0); Hematocrit 41.1 % (36.0-47.0); Hemoglobin 12.7 g/dL (12.0-16.0); Mean Corpuscular HGB CONC 30.9 g/dL (32.0-36.0); Mean Corpuscular Hemoglobin 30.8 pg (27.0-31.0); Mean Corpuscular Volume 99.8 fl (78.0-98.0); Mean Platelet Volume 10.1 fL (7.4-10.4); Platelet Count 228 10x3/uL (130-400); RBC Distribution Width 12.8 % (11.5-14.5); Red Blood Cell (RBC) Count 4.12 mill/uL (4.20-5.40); White Blood Cell (WBC) Count 17.1 10x3/uL (4.8-10.8)
[2023-12-29 10:03] LABS: Anion Gap 10 mmol/L (10-20); BUN (Urea Nitrogen) 22 mg/dL (9.8-20.1); Calc. Creatinine Clearance 83 mL/min (70-130); Calcium 9.1 mg/dL (7.8-10.44); Carbon Dioxide 34 mmol/L (23-31); Chloride 100 mmol/L (98-107); Estimated GFR 71; Glucose 160 mg/dL (80-115); Potassium 4.4 mmol/L (3.5-5.1); Sodium 140 mmol/L (136-145)
[2023-12-29 14:00] LABS: Actual Bicarbonate (HCO3a) 36.2 mEq/L (22-28); Base Excess (BEa) 7.8 mEq/L (-2.0 to +3.0); Calcium, Ionized (arterial) 1.21 mmol/L (1.12-1.30); Carboxyhemoglobin (COHb) 0.7 gm% (0.0-3.0); Hematocrit-ABG 40 % (36.0-47.0); Hemoglobin (Hb) 13.7 g/dL (12.0-16.0); O2 Tension (PaO2), arterial 76.1 mmHg (> 80.0); Potassium - ABG Lab 4.37 mmol/L (3.70-5.30); pH, Arterial 7.334 (7.35-7.45)
[2023-12-29 14:01] LABS: CO2 Tension 69.6 mmHg (35.0-45.0)
[2023-12-29 14:02] LABS: Puncture Site LRA
== END 2023-12-29 17:23 | disposition home or self-care (01) | DRG 189 ==
LOC: ERS 19:13 → MSONC 23:34 → OBSVTOIN 12-28 02:58
PROVIDERS: ADMIT Student in an Organized Health Care Education/Training Program; ATTEND Internal Medicine
PROC: 4A033R1 Measurement of Arterial Saturation, Peripheral, Percutaneous Approach (ICD-10-PCS; principal; 2023-12-29)
DX: J96.21 Acute and chronic respiratory failure with hypoxia (principal); J44.1 Chronic obstructive pulmonary disease with (acute) exacerbation; J96.22 Acute and chronic respiratory failure with hypercapnia; Z11.52 Encounter for screening for COVID-19; Z79.899 Other long term (current) drug therapy; F32.A Depression, unspecified; Z90.710 Acquired absence of both cervix and uterus; Z90.89 Acquired absence of other organs; Z98.49 Cataract extraction status, unspecified eye; Z87.891 Personal history of nicotine dependence; Z79.01 Long term (current) use of anticoagulants
CPT/HCPCS: 36415; 36600; 71045; 80048; 80053; 82805; 83605; 83735; 83880; 85025; 93005; 94640; J0456; J0696; J1644; J1956; J2920; J2930; J3475; J3490; J7050; J7611; J7620